=== PATIENT | male | born 1945 | race Caucasian/White ===

== ENCOUNTER 2021-09-21 13:18 | Inpatient (IN) | payer MEDICARE, OTHER ==
[~2021-09-21] VITALS: Ht 165.1 cm; Wt 59.0 kg
[2021-09-21 13:47] LABS: MEAN CORPUSCULAR VOLUME 88.8 fL (73.0-96.2); PLATELET COUNT (AUTO) 247 K/uL (152-348)
[2021-09-21 13:53] LABS: CARBON DIOXIDE 29 mmol/L (21-32); CHLORIDE 102 mmol/L (98-107); CREATININE 0.9 mg/dL (0.6-1.3); GLUCOSE 113 mg/dL (74-106); POTASSIUM 3.9 mmol/L (3.5-5.1); UREA NITROGEN, BLOOD 15 mg/dL (7-18)
[2021-09-21 13:58] LABS: ACETAMINOPHEN < 2.0 ug/mL (10-30); ALANINE AMINOTRANSFERASE 24 U/L (16-63); ALKALINE PHOSPHATASE 105 U/L (50-136); ASPARTATE AMINOTRANSFERASE 13 U/L (15-37); BILIRUBIN,DIRECT 0.1 mg/dL (0.0-0.2); BILIRUBIN,TOTAL 0.6 mg/dL (0.2-1.0); TOTAL PROTEIN, SERUM 8.9 g/dL (6.4-8.2)
[2021-09-21 14:00] LABS: *BILIRUBIN,URIN NEGATIVE (NEGATIVE); *BLOOD, URINE NEGATIVE (NEGATIVE); *CLARITY,URINE CLEAR (CLEAR); *COLOR,URINE YELLOW (YELLOW); *KETONES,URINE NEGATIVE (NEGATIVE); *UROBILINOGEN,URINE 0.2 E.U./dl (NORMAL); LEUKOCYTE ESTERASE ,URINE NEGATIVE (NEGATIVE); NITRITE, URINE NEGATIVE (NEGATIVE); PH,URINE 6.5 (5.0-8.0); UGLUCOSE NEGATIVE (NEGATIVE)
[2021-09-21 14:00] LABS: ETHANOL < 3 MG/DL (0-0)
--- NOTE | 2021-09-21 14:00 | NUR ---
pt had lunch with good apetite.
[2021-09-21 14:06] LABS: *AMPHETAMINE, URINE NEGATIVE (NEGATIVE); *CANNABINOID, URINE POSITIVE (NEGATIVE); *COCCAINE, URINE NEGATIVE (NEGATIVE); *OPIATE, URINE NEGATIVE (NEGATIVE); *PHENCYCLIDINE SCREEN,URINE NEGATIVE (NEGATIVE)
[2021-09-21] MEDS ORDERED: AMLO-212 PO (14:20)
[2021-09-21] MEDS ORDERED: OMEP20TA5 PO (14:20)
[2021-09-21] MEDS ORDERED: GABA-532 PO (14:20)
[2021-09-21] MEDS ORDERED: TAMS-3 PO (14:20)
[2021-09-21] MEDS ORDERED: ATOR40TA PO (14:20)
[2021-09-21] MEDS ORDERED: CHOL200026 PO (14:20)
[2021-09-21] MEDS ORDERED: MIRT45TA83 PO (14:20)
[2021-09-21] MEDS ORDERED: QUET200T PO (14:20)
[2021-09-21] MEDS ORDERED: QUET50TA PO (14:20)
--- NOTE | 2021-09-21 15:40 | NUR ---
PT TRANSFERED TO MHU IN STABLE UNIT.
[2021-09-21] MEDS ORDERED: MAGNESIUM HYDROXIDE 30 ML LIQUID UDC PO PRN (15:45)
[2021-09-21] MEDS ORDERED: CLONAZEPAM 0.5 MG TABLET PO PRN (15:45)
[2021-09-21] MEDS ORDERED: MAG HYDROX/AL HYDROX/SIMETH 30 ML LIQUID UDC PO PRN (15:45)
[2021-09-21 16:36] VITALS: BP 135/89
--- NOTE | 2021-09-21 18:51 | NUR ---
GPS: Nursing Notes: Admitting Notes: Patient is admitted to MHU on 5150 DTS due to stating that for the past 2-3 days has been having thoughts to kill himself, stated that he would have done it if police did not come, stated "I have strong medications.. I have a knife..", on face to face assessment, patient is A/Ox4, cooperative with staff, stated "I was frustrated because my insurance had changed.. I cannot changed it back..", "My mind was racing... I want it to hurt myself..", depressed mood and anxious affect, verbally cecily for safety, stated "I am feeling better now..But I am very frustrated..", oriented to the unit and Patient's Right handbook given to the patient, Bernabe Quiñones NP covering for Dr. Stevenson and Dr. Martins notified of admission by charge nurse.
[2021-09-21 19:56] VITALS: BP 138/82
[2021-09-21] MEDS: TEMAZEPAM 7.5 MG CAPSULE PO PRN (21:53)
--- NOTE | 2021-09-22 05:47 | NUR ---
Patient asleep but arousable, no complain of pain, calm cooperative at this time. Patient took sleeping pill for insomnia with help, Patient was offered shower last night and this morning but refused. cont to encourage.
[2021-09-22 07:53] VITALS: BP 141/95
[2021-09-22 08:37] LABS: BILIRUBIN,TOTAL 0.5 mg/dL (0.2-1.0); CREATININE 0.9 mg/dL (0.6-1.3); POTASSIUM 4.2 mmol/L (3.5-5.1); TOTAL PROTEIN, SERUM 7.9 g/dL (6.4-8.2)
--- NOTE | 2021-09-22 15:10 | NUR ---
Received patient awake in the hallway. A/O X 3 -4 to person, place, situation. Pt. is isolative, withdrawn, introspective, calm, cooperative with care, and compliant with medications. Pt. ambulates independently, steady gait. Denies SI/HI AH/VH, SOB, pain or any discomfort. Pt. is continent of bladder and bowel. Pt. is encourage to vent feelings and emotions. Fall and safety precautions implemented.
[2021-09-22 15:52] VITALS: BP 158/81
[2021-09-22] MEDS ORDERED: TAMSULOSIN HCL 0.4 MG CAP.SR.24H PO SCH (17:00)
[2021-09-22 17:30] VITALS: BP 145/90
[2021-09-22 20:00] VITALS: BP 143/80
[2021-09-22] MEDS ORDERED: AMLODIPINE 5 MG TABLET PO ONE (20:15)
[2021-09-22] MEDS: MIRTAZAPINE 15 MG TABLET PO SCH (20:23)
[2021-09-22] MEDS: QUETIAPINE FUMARATE 200 MG TABLET PO SCH (20:24)
[2021-09-22] MEDS: ATORVASTATIN 40 MG TABLET PO SCH (20:24)
--- NOTE | 2021-09-23 05:53 | NUR ---
GPS: Patient remain isolative and depressed. no complain of pain, calm cooperative at this time. slept 7 hrs through the night. Patient refused shower this morning. continue plan of care..
[2021-09-23] MEDS: PANTOPRAZOLE SODIUM 40 MG TABLET.DR PO SCH (06:16)
[2021-09-23 07:49] VITALS: BP 129/85
[2021-09-23] MEDS: AMLODIPINE 5 MG TABLET PO SCH (08:53)
[2021-09-23] MEDS: TAMSULOSIN HCL 0.4 MG CAP.SR.24H PO SCH ×2 (08:53→20:21)
[2021-09-23] MEDS: QUETIAPINE FUMARATE 25 MG TABLET PO SCH (08:56)
[2021-09-23] MEDS: CHOLECALCIFEROL 1,000 UNIT TABLET PO SCH (08:58)
[2021-09-23] MEDS ORDERED: Medication Not On Formulary EA (Omeprazole 1 TAB) PO SCH (09:00)
[2021-09-23] MEDS ORDERED: Medication Not On Formulary EA (Cholecalciferol (Vitamin D3) (Vitamin D3) 1 TAB) PO SCH (09:00)
--- NOTE | 2021-09-23 15:41 | NUR ---
Gps/Fuel Yard Operator- Staying in his room most of the morning , tends to be isolative .Interacts when engaged. Compliant with his routine meds. Decrease pain right eye discomfort.
--- NOTE | 2021-09-23 16:06 | NUR ---
JASEN Initial Discharge Note: Pt currently resides alone at [address] [place] [address] [address] [id number]. Pt stated he is agreeable to discharge to a half-way facility as he stated he needs help. Pt stated he has a niece he talks to from time to time however, pt does not have contact information. Pt stated he does not have any other family or friends. JASEN will continue to work with pt and MD to ensure a safe and proper discharge plan for the pt.
[2021-09-23 16:29] VITALS: BP 145/82
[2021-09-23 20:00] VITALS: BP 141/78
[2021-09-23] MEDS: QUETIAPINE FUMARATE 200 MG TABLET PO SCH (20:20)
[2021-09-23] MEDS: MIRTAZAPINE 15 MG TABLET PO SCH (20:20)
[2021-09-23] MEDS: ATORVASTATIN 40 MG TABLET PO SCH (20:35)
[2021-09-24] MEDS: PANTOPRAZOLE SODIUM 40 MG TABLET.DR PO SCH (06:19)
[2021-09-24 07:40] VITALS: BP_SYST 118; BP_SYST 132; BP_DIAS 73; BP_DIAS 78
[2021-09-24] MEDS: CHOLECALCIFEROL 1,000 UNIT TABLET PO SCH (08:55)
[2021-09-24] MEDS: TAMSULOSIN HCL 0.4 MG CAP.SR.24H PO SCH ×2 (08:55→20:27)
[2021-09-24] MEDS: AMLODIPINE 5 MG TABLET PO SCH (08:56)
[2021-09-24] MEDS: QUETIAPINE FUMARATE 25 MG TABLET PO SCH (08:56)
[2021-09-24] MEDS: ENSURE ENLIVE (VAN) 240 ML LIQUID PO SCH (11:00)
--- NOTE | 2021-09-24 13:00 | NUR ---
Gps/Regional Business Development Manager- Requesting to get his cell phone in the safe, claimed needed to talk to his Landlord, re- rent is due. , patient was able to leave message to his Landlord .
[2021-09-24] MEDS: CLONAZEPAM 1 MG TABLET PO PRN (18:21)
[2021-09-24] MEDS: MIRTAZAPINE 15 MG TABLET PO SCH (20:26)
[2021-09-24] MEDS: QUETIAPINE FUMARATE 200 MG TABLET PO SCH (20:26)
[2021-09-24] MEDS: ATORVASTATIN 40 MG TABLET PO SCH (20:27)
[2021-09-24 20:44] VITALS: BP 126/81
--- NOTE | 2021-09-25 04:48 | NUR ---
GPS NOTES: received patient in the room sleeping, responsive to verbal stimuli. Patient isolative and is with anxiety noted that is manageable by medications order. Compliant with medications. Patient able to communicate needs. Denies Si, and cecily safety with the underwriter mortgage loan. No distress noted. patient intermittently sleeping during shift.
[2021-09-25] MEDS: PANTOPRAZOLE SODIUM 40 MG TABLET.DR PO SCH (06:16)
[2021-09-25 08:10] VITALS: BP 156/98
[2021-09-25] MEDS: CHOLECALCIFEROL 1,000 UNIT TABLET PO SCH (08:17)
[2021-09-25] MEDS: QUETIAPINE FUMARATE 25 MG TABLET PO SCH (08:17)
[2021-09-25] MEDS: TAMSULOSIN HCL 0.4 MG CAP.SR.24H PO SCH ×2 (08:17→20:15)
[2021-09-25] MEDS: AMLODIPINE 5 MG TABLET PO SCH (08:17)
[2021-09-25] MEDS: ENSURE ENLIVE (VAN) 240 ML LIQUID PO SCH (08:21)
[2021-09-25 15:20] VITALS: BP 124/74
--- NOTE | 2021-09-25 18:06 | NUR ---
Gps/Manager Of Administration- Easily gets anxious, verbalizing frustration when unable to set needs , patient needed redirections , cueing , patient requesting some help to help him with his plans, worried about his insurance , needed help in calling them , for enrolling, noted > anxious when cant go through what he needs . Patient appeared to need some support , to help him do thing needed to be done.
[2021-09-25] MEDS: QUETIAPINE FUMARATE 200 MG TABLET PO SCH (20:15)
[2021-09-25] MEDS: ATORVASTATIN 40 MG TABLET PO SCH (20:15)
[2021-09-25] MEDS: MIRTAZAPINE 15 MG TABLET PO SCH (20:15)
[2021-09-25 21:05] VITALS: BP 120/72
--- NOTE | 2021-09-26 03:17 | NUR ---
Received patient in his room. The patient was anxious and ruminating over and over about concerns he has regarding his health insurance. When this sports book writer asked him why he was here, he stated " I made a stupid mistake and changed my insurance. So I was going to kill myself because of it ". The patients story was long and did not make any sense. This sports book writer tried to reassure and refocus the patient , but the patient was fixated on the subject. The patient did however, make a verbal contract for safety and did deny active SI. During the night, this patient has come out of his room to the desk verbalizing being worried about this and that. Safety Stratiges are in place at this time.Frequent rounding being done.
[2021-09-26] MEDS: PANTOPRAZOLE SODIUM 40 MG TABLET.DR PO SCH (06:08)
[2021-09-26] MEDS: CLONAZEPAM 1 MG TABLET PO PRN (06:14)
[2021-09-26 07:46] VITALS: BP 143/88
[2021-09-26] MEDS: QUETIAPINE FUMARATE 25 MG TABLET PO SCH (08:07)
[2021-09-26] MEDS: CHOLECALCIFEROL 1,000 UNIT TABLET PO SCH (08:07)
[2021-09-26] MEDS: ENSURE ENLIVE (VAN) 240 ML LIQUID PO SCH (08:07)
[2021-09-26] MEDS: AMLODIPINE 5 MG TABLET PO SCH (08:07)
[2021-09-26] MEDS: TAMSULOSIN HCL 0.4 MG CAP.SR.24H PO SCH ×2 (08:07→20:14)
--- NOTE | 2021-09-26 08:45 | NUR ---
Gps/Home Lending Officer- Stayed in the dinning room during his breakfast, Compliant with routine medications, less anxious , but still talks about the need to call his insurance tomorrow, and fixed things .
[2021-09-26 16:45] VITALS: BP 122/71
[2021-09-26] MEDS: ACETAMINOPHEN 325 MG TABLET PO PRN (18:57)
[2021-09-26 19:40] VITALS: BP 147/77
[2021-09-26] MEDS: QUETIAPINE FUMARATE 200 MG TABLET PO SCH (20:13)
[2021-09-26] MEDS: ATORVASTATIN 40 MG TABLET PO SCH (20:13)
[2021-09-26] MEDS: MIRTAZAPINE 15 MG TABLET PO SCH (20:13)
--- NOTE | 2021-09-27 02:57 | NUR ---
Patient seems less anxious tonight. Spent a good portion of time in the day room watching TV. Medication compliant. Denies active SI and made a verbal contract for safety with this investigative writer. Continuing with frequent rounds and encouraging patient to verbalize feelings and concerns.
[2021-09-27] MEDS: PANTOPRAZOLE SODIUM 40 MG TABLET.DR PO SCH (06:03)
[2021-09-27 07:41] VITALS: BP 147/50
[2021-09-27] MEDS: TAMSULOSIN HCL 0.4 MG CAP.SR.24H PO SCH ×2 (08:18→20:55)
[2021-09-27] MEDS: CHOLECALCIFEROL 1,000 UNIT TABLET PO SCH (08:18)
[2021-09-27] MEDS: AMLODIPINE 5 MG TABLET PO SCH (08:18)
[2021-09-27] MEDS: QUETIAPINE FUMARATE 25 MG TABLET PO SCH (08:18)
[2021-09-27] MEDS: ENSURE ENLIVE (VAN) 240 ML LIQUID PO SCH (08:19)
[2021-09-27] MEDS ORDERED: QUETIAPINE FUMARATE 25 MG TABLET PO SCH (09:00)
--- NOTE | 2021-09-27 14:30 | NUR ---
PT [facility] 14 DAY HOLD HEARING DONE TODAY AND WITH APPROVE PROBABLE CAUSE OF GRAVE DISABILITY ONLY. PT DID NOT PARTICIPATE WITH THE HEARING.
--- NOTE | 2021-09-27 14:32 | NUR ---
PT [facility] 14 DAY HOLD HEARING DONE TODAY AND WITH APPROVE PROBABLE CAUSE OF GRAVE DISABILITY ONLY. PT WAS PARTICIPATE WITH THE HEARING.
--- NOTE | 2021-09-27 15:51 | NUR ---
GPS: Nursing Notes: Destructive Behavior To Self: Patient is awake and responding to his name, depressed mood and anxious affect, A/Ox3, cooperative with nursing care, compliant with his medications, participating in therapeutic groups, gets easily anxious when redirected, argumentative at times, verbally cecily for safety, denies SI, believes that the medications are working for him, unable to formulate a viable plan for self care, isolative and withdrawn in his room at times, continue to monitor for safety, continue with treatment plan.
[2021-09-27 16:03] VITALS: BP 136/56
[2021-09-27 20:14] VITALS: BP 159/84
[2021-09-27] MEDS: QUETIAPINE FUMARATE 200 MG TABLET PO SCH (20:55)
[2021-09-27] MEDS: MIRTAZAPINE 15 MG TABLET PO SCH (20:55)
[2021-09-27] MEDS: ATORVASTATIN 40 MG TABLET PO SCH (20:55)
--- NOTE | 2021-09-27 22:34 | NUR ---
Received patient in the day room. He is noted A/O x 3. he continue fixed on his insurance, he stated, "I am worry that my insurance changed and I will not be able to see my doctors anymore. I used to have PPO and now I have HMO". patient was also noted tangental, he stated, "I won a saez on the "Saez is right". He stated that he is still sad but he denied SI/HI/AH/VH and he was able to verbally CFS. Patient was reassured about his insurance. he is reassured for his safety. safety and fall precautions are in place: bed at lowest position with wheels locked, room free form clutter and well-light. V/S stable. patient was given PO fluids and snacks. will continue to monitor.
[2021-09-27] MEDS: CLONAZEPAM 1 MG TABLET PO PRN (23:28)
--- NOTE | 2021-09-27 23:30 | NUR ---
Patient approached the nursing station, he stated, "I feel that my body is sleepy but my head is still awake". he was noted anxious, restless, and hyperverbal. patient was reassured and redirected. Klonopin 1mg PO PRN was given. will continue to monitor closely.
--- NOTE | 2021-09-28 06:04 | NUR ---
Patient slept for approx. 5.30 hrs through the night. He was compliant with medication regiment. will continue to monitor.
[2021-09-28] MEDS: PANTOPRAZOLE SODIUM 40 MG TABLET.DR PO SCH (06:41)
[2021-09-28 07:30] VITALS: BP 153/84
[2021-09-28] MEDS: TAMSULOSIN HCL 0.4 MG CAP.SR.24H PO SCH ×2 (08:39→20:33)
[2021-09-28] MEDS: CHOLECALCIFEROL 1,000 UNIT TABLET PO SCH (08:39)
[2021-09-28] MEDS: AMLODIPINE 5 MG TABLET PO SCH (08:39)
[2021-09-28] MEDS: ENSURE ENLIVE (VAN) 240 ML LIQUID PO SCH (08:40)
[2021-09-28] MEDS: QUETIAPINE FUMARATE 25 MG TABLET PO SCH (08:40)
--- NOTE | 2021-09-28 14:48 | NUR ---
GPS: Nursing Notes: Mood Disturbance: Depression: Patient is awake and responding to his name, participating in therapeutic groups, isolative and withdrawn in his room at times, needs prompting with his ADL's, depressed mood and anxious affect, feeling frustrated regarding changed in his insurance due to him calling medicare and changed it to medicare advantage, stated "I cannot change it back.. I do not have the same doctors..", "I do not know what to do..", argumentative at times, unable to formulate a viable plan for self care, denies SI/HI, verbally cecily for safety, continue to monitor for safety, gets easily anxious when redirected, continue with treatment plan.
[2021-09-28 15:01] VITALS: BP 136/82
[2021-09-28] MEDS: QUETIAPINE FUMARATE 200 MG TABLET PO SCH (20:32)
[2021-09-28] MEDS: TEMAZEPAM 7.5 MG CAPSULE PO PRN (20:33)
[2021-09-28] MEDS: MIRTAZAPINE 15 MG TABLET PO SCH (20:33)
[2021-09-28] MEDS: ATORVASTATIN 40 MG TABLET PO SCH (20:33)
[2021-09-28 21:03] VITALS: BP 142/78
[2021-09-29] MEDS: PANTOPRAZOLE SODIUM 40 MG TABLET.DR PO SCH (06:38)
[2021-09-29 07:30] VITALS: BP 144/85
[2021-09-29] MEDS: CHOLECALCIFEROL 1,000 UNIT TABLET PO SCH (08:56)
[2021-09-29] MEDS: QUETIAPINE FUMARATE 25 MG TABLET PO SCH (08:56)
[2021-09-29] MEDS: AMLODIPINE 5 MG TABLET PO SCH (08:57)
[2021-09-29] MEDS: TAMSULOSIN HCL 0.4 MG CAP.SR.24H PO SCH ×2 (08:58→20:27)
[2021-09-29] MEDS: ENSURE ENLIVE (VAN) 240 ML LIQUID PO SCH (08:58)
[2021-09-29 15:06] VITALS: BP 133/72
--- NOTE | 2021-09-29 17:36 | NUR ---
Received patient awake in his room. A/O X 3 -4 to person, place, situation. Pt. is isolative, withdrawn, cooperative with care, and compliant with medications. Pt. ambulates independently. Denies SI/HI AH/VH, SOB, pain or any discomfort. Pt. is continent of bladder and bowel. Pt. is encourage to verbalize concerns. Fall and safety precautions implemented.
[2021-09-29] MEDS: ATORVASTATIN 40 MG TABLET PO SCH (20:27)
[2021-09-29] MEDS: QUETIAPINE FUMARATE 200 MG TABLET PO SCH (20:27)
[2021-09-29] MEDS: MIRTAZAPINE 15 MG TABLET PO SCH (20:27)
[2021-09-29 21:00] VITALS: BP 142/81
[2021-09-29] MEDS: TEMAZEPAM 7.5 MG CAPSULE PO PRN (21:42)
--- NOTE | 2021-09-30 05:49 | NUR ---
Patient slept 6.45 hours during the night.
--- NOTE | 2021-09-30 05:50 | NUR ---
Patient was anxious last night about having a roommate. Eventually went to bed and slept 6.45 hours. Safety Stratiges are in place. Patient denies SI and the patient made a verbal contract for safety with this database report writer.
[2021-09-30] MEDS: PANTOPRAZOLE SODIUM 40 MG TABLET.DR PO SCH (06:19)
[2021-09-30 07:46] VITALS: BP 161/83
[2021-09-30] MEDS: AMLODIPINE 5 MG TABLET PO SCH (08:40)
[2021-09-30] MEDS: QUETIAPINE FUMARATE 25 MG TABLET PO SCH (08:40)
[2021-09-30] MEDS: TAMSULOSIN HCL 0.4 MG CAP.SR.24H PO SCH ×2 (08:40→20:55)
[2021-09-30] MEDS: ENSURE ENLIVE (VAN) 240 ML LIQUID PO SCH (08:41)
[2021-09-30] MEDS: CHOLECALCIFEROL 1,000 UNIT TABLET PO SCH (08:41)
--- NOTE | 2021-09-30 10:46 | NUR ---
Gps/Web Site Manager- Stayed in the activity room, able to participate in his group activity.Compliant with routine am meds., less anxious, verbalized needs and feelings
[2021-09-30 15:59] VITALS: BP 126/72
[2021-09-30 20:00] VITALS: BP 144/79
[2021-09-30] MEDS: QUETIAPINE FUMARATE 200 MG TABLET PO SCH (20:55)
[2021-09-30] MEDS: ATORVASTATIN 40 MG TABLET PO SCH (20:55)
[2021-09-30] MEDS: MIRTAZAPINE 15 MG TABLET PO SCH (20:56)
[2021-10-01] MEDS: PANTOPRAZOLE SODIUM 40 MG TABLET.DR PO SCH (06:12)
[2021-10-01 07:47] VITALS: BP 165/58
[2021-10-01] MEDS: CHOLECALCIFEROL 1,000 UNIT TABLET PO SCH (08:22)
[2021-10-01] MEDS: QUETIAPINE FUMARATE 25 MG TABLET PO SCH (08:22)
[2021-10-01] MEDS: ENSURE ENLIVE (VAN) 240 ML LIQUID PO SCH (08:23)
[2021-10-01] MEDS: AMLODIPINE 5 MG TABLET PO SCH (08:23)
[2021-10-01] MEDS: TAMSULOSIN HCL 0.4 MG CAP.SR.24H PO SCH ×2 (08:23→20:30)
[2021-10-01 15:29] VITALS: BP 141/77
[2021-10-01 19:30] VITALS: BP 161/95
[2021-10-01] MEDS: ATORVASTATIN 40 MG TABLET PO SCH (20:30)
[2021-10-01] MEDS: MIRTAZAPINE 15 MG TABLET PO SCH (20:30)
[2021-10-01] MEDS: QUETIAPINE FUMARATE 200 MG TABLET PO SCH (20:31)
[2021-10-01] MEDS: TEMAZEPAM 7.5 MG CAPSULE PO PRN (21:33)
--- NOTE | 2021-10-02 03:35 | NUR ---
GPS NOTES: patient in the day room watching tv, greeted patient and is pleasant with the health technical writer. Patient verbalized being upset with his room mate earlier d/t opposing decision of having their room door close/ open. Patient verbalized he had been keeping his frustration with his room mate for 5 days and is the only time he had said something to his room mate. Patient is apologetic with his behavior. Evaluation Manager actively listening to patient. Informed patient that room door needs to be open at all times for their safety, verbalized understanding. Patient cooperative with care. compliant with medication. Restoril given as per patient request. patient slept well. safety strategies in place.
[2021-10-02] MEDS: PANTOPRAZOLE SODIUM 40 MG TABLET.DR PO SCH (06:15)
[2021-10-02 07:31] VITALS: BP 140/84
[2021-10-02] MEDS: CHOLECALCIFEROL 1,000 UNIT TABLET PO SCH (08:12)
[2021-10-02] MEDS: TAMSULOSIN HCL 0.4 MG CAP.SR.24H PO SCH ×2 (08:12→20:30)
[2021-10-02] MEDS: AMLODIPINE 5 MG TABLET PO SCH (08:13)
[2021-10-02] MEDS: QUETIAPINE FUMARATE 25 MG TABLET PO SCH (08:13)
[2021-10-02] MEDS: ENSURE ENLIVE (VAN) 240 ML LIQUID PO SCH (08:14)
[2021-10-02] MEDS: ACETAMINOPHEN 325 MG TABLET PO PRN (13:48)
[2021-10-02 16:40] VITALS: BP 136/81
[2021-10-02 19:37] VITALS: BP 149/87
[2021-10-02] MEDS: MIRTAZAPINE 15 MG TABLET PO SCH (20:30)
[2021-10-02] MEDS: QUETIAPINE FUMARATE 200 MG TABLET PO SCH (20:30)
[2021-10-02] MEDS: ATORVASTATIN 40 MG TABLET PO SCH (20:30)
[2021-10-02] MEDS: TEMAZEPAM 7.5 MG CAPSULE PO PRN (21:41)
--- NOTE | 2021-10-03 05:13 | NUR ---
No changes in the patients behavior. He continues to be angry with his roommate. Medicated for sleep per request. Total sleep hours are 6.45 so far. The patient denies active SI , and safety stratiges remain in place.
[2021-10-03] MEDS: PANTOPRAZOLE SODIUM 40 MG TABLET.DR PO SCH (06:04)
[2021-10-03 07:38] VITALS: BP 145/95
[2021-10-03] MEDS: ACETAMINOPHEN 325 MG TABLET PO PRN (08:09)
[2021-10-03] MEDS: TAMSULOSIN HCL 0.4 MG CAP.SR.24H PO SCH ×2 (08:09→20:10)
[2021-10-03] MEDS: QUETIAPINE FUMARATE 25 MG TABLET PO SCH (08:10)
[2021-10-03] MEDS: CHOLECALCIFEROL 1,000 UNIT TABLET PO SCH (08:10)
[2021-10-03] MEDS: AMLODIPINE 5 MG TABLET PO SCH (08:12)
[2021-10-03] MEDS: ENSURE ENLIVE (VAN) 240 ML LIQUID PO SCH (08:12)
--- NOTE | 2021-10-03 15:09 | NUR ---
This patient has been on and off anxious today. Very calm at times but then fixates on his financial situation, shaving his face, his medical insurance, how much he dislikes his roommate etc. Nothing that is said to help or comfort him ,will he choose to listen too. He is a negative thinker. This underwriter mortgage loan will continue to offer assistance whenever possible and appropriate. Safety Stratiges are in place and ongoing.
[2021-10-03 16:24] VITALS: BP 145/85
[2021-10-03 19:58] VITALS: BP 142/87
[2021-10-03] MEDS: QUETIAPINE FUMARATE 200 MG TABLET PO SCH (20:10)
[2021-10-03] MEDS: ATORVASTATIN 40 MG TABLET PO SCH (20:10)
[2021-10-03] MEDS: MIRTAZAPINE 15 MG TABLET PO SCH (20:11)
[2021-10-03] MEDS: TEMAZEPAM 7.5 MG CAPSULE PO PRN (21:31)
[2021-10-04] MEDS: PANTOPRAZOLE SODIUM 40 MG TABLET.DR PO SCH (06:00)
--- NOTE | 2021-10-04 06:12 | NUR ---
Patient slept 7 hrs.Compliant with medications .PT continue to claim he doesn't get along with his roommate and couldn't to sleep during the night d/t his roommate keeps getting up.PRn Restoril was given per patient request.
[2021-10-04 07:39] VITALS: BP 131/82
[2021-10-04] MEDS: CHOLECALCIFEROL 1,000 UNIT TABLET PO SCH (08:30)
[2021-10-04] MEDS: QUETIAPINE FUMARATE 25 MG TABLET PO SCH (08:30)
[2021-10-04] MEDS: AMLODIPINE 5 MG TABLET PO SCH (08:30)
[2021-10-04] MEDS: TAMSULOSIN HCL 0.4 MG CAP.SR.24H PO SCH ×2 (08:31→20:20)
[2021-10-04] MEDS: ENSURE ENLIVE (VAN) 240 ML LIQUID PO SCH (08:32)
[2021-10-04 16:03] VITALS: BP 132/80
--- NOTE | 2021-10-04 17:19 | NUR ---
GPS: Nursing Notes: Mood Disturbance: Depression: Patient is awake and responding to his name, poor impulse control at times, stating that he is frustrated with his insurance, "I cannot see my own doctor for twenty years..", believes that he is not going to get his food if he is going to a jail, redirected during shift, unable to formulate a viable plan for self care, denies SI/HI, verbally cecily for safety, continue to monitor for safety, continue with treatment plan.
[2021-10-04 19:59] VITALS: BP 147/87
[2021-10-04] MEDS: MIRTAZAPINE 15 MG TABLET PO SCH (20:20)
[2021-10-04] MEDS: ATORVASTATIN 40 MG TABLET PO SCH (20:20)
[2021-10-04] MEDS: QUETIAPINE FUMARATE 200 MG TABLET PO SCH (20:20)
--- NOTE | 2021-10-05 04:58 | NUR ---
GPS NOTES: Patient watching tv upon start of the shift. pleasant upon approach, no active behavioral problem noted. interacts appropriately with peers and staff. Denies SI, denies feeling anxiety. Compliant with medication. slept well w/ no interruption. No distress. Closely monitoring observed. safety measure in place at all times.
[2021-10-05] MEDS: PANTOPRAZOLE SODIUM 40 MG TABLET.DR PO SCH (06:05)
[2021-10-05 07:30] VITALS: BP 156/83
[2021-10-05] MEDS: TAMSULOSIN HCL 0.4 MG CAP.SR.24H PO SCH ×2 (09:00→20:33)
[2021-10-05] MEDS: CHOLECALCIFEROL 1,000 UNIT TABLET PO SCH (09:00)
[2021-10-05] MEDS: QUETIAPINE FUMARATE 25 MG TABLET PO SCH (09:00)
[2021-10-05] MEDS: ENSURE ENLIVE (VAN) 240 ML LIQUID PO SCH (09:01)
[2021-10-05] MEDS: AMLODIPINE 5 MG TABLET PO SCH (09:01)
--- NOTE | 2021-10-05 13:18 | NUR ---
GPS: Nursing Notes: Mood Disturbance: Depression: Patient is awake and responding to his name, cooperative with nursing care, gets easily anxious when redirected, denies SI/HI, believes that he is getting better, participating in therapeutic groups, depressed mood and anxious affect, argumentative at times, unable to formulate a viable plan for self care, compliant with his medications, denies SI/HI, continue to monitor for safety, verbally cecily for safety, continue with treatment plan.
[2021-10-05 15:24] VITALS: BP 153/80
[2021-10-05 20:01] VITALS: BP 144/86
[2021-10-05] MEDS: MIRTAZAPINE 15 MG TABLET PO SCH (20:35)
[2021-10-05] MEDS: ATORVASTATIN 40 MG TABLET PO SCH (20:35)
[2021-10-05] MEDS: QUETIAPINE FUMARATE 200 MG TABLET PO SCH (20:35)
[2021-10-06] MEDS: PANTOPRAZOLE SODIUM 40 MG TABLET.DR PO SCH (07:16)
[2021-10-06 07:30] VITALS: BP 164/86
[2021-10-06] MEDS: TAMSULOSIN HCL 0.4 MG CAP.SR.24H PO SCH ×2 (08:28→20:16)
[2021-10-06] MEDS: CHOLECALCIFEROL 1,000 UNIT TABLET PO SCH (08:28)
[2021-10-06] MEDS: QUETIAPINE FUMARATE 25 MG TABLET PO SCH (08:28)
[2021-10-06] MEDS: AMLODIPINE 5 MG TABLET PO SCH (08:29)
[2021-10-06] MEDS: ENSURE ENLIVE (VAN) 240 ML LIQUID PO SCH (08:31)
[2021-10-06 10:00] VITALS: BP_SYST 145
[2021-10-06] MEDS ORDERED: QUETIAPINE FUMARATE 25 MG TABLET PO ONE (10:15)
--- NOTE | 2021-10-06 15:09 | NUR ---
Received patient sleeping in his room. A/O X 3 to person, place, environment. Pt. is irritable and anxious at times, gets frustrated easily. Pt. states: "That's why I didn't want to live anymore. Everything is so difficult to solve". Denies SI. Active listening provided. Fall and safety precautions implemented.
[2021-10-06 16:00] VITALS: BP 141/85
[2021-10-06 19:50] VITALS: BP 134/79
[2021-10-06] MEDS: MIRTAZAPINE 15 MG TABLET PO SCH (20:16)
[2021-10-06] MEDS: ATORVASTATIN 40 MG TABLET PO SCH (20:16)
[2021-10-06] MEDS: QUETIAPINE FUMARATE 200 MG TABLET PO SCH (20:16)
--- NOTE | 2021-10-06 21:08 | NUR ---
Received patient sleeping in his room. A/O X 3. Patient. is irritable and anxious at times, gets frustrated easily.Patient denies SI patient is encouraged to express his feelings and concerns. Patient encouraged to join group activities and interact with his peers..Fall and safety precautions implemented. Patient complaint with medication. Safety measures rendered. Bed in lowest position, bed locked, and bed alarm on while in bed.
[2021-10-06] MEDS: TEMAZEPAM 7.5 MG CAPSULE PO PRN (22:03)
[2021-10-07] MEDS: PANTOPRAZOLE SODIUM 40 MG TABLET.DR PO SCH (06:04)
[2021-10-07 07:30] VITALS: BP 157/88
[2021-10-07] MEDS ORDERED: QUETIAPINE FUMARATE 25 MG TABLET PO SCH (09:00)
[2021-10-07] MEDS: TAMSULOSIN HCL 0.4 MG CAP.SR.24H PO SCH ×2 (09:04→20:26)
[2021-10-07] MEDS: ENSURE ENLIVE (VAN) 240 ML LIQUID PO SCH (09:04)
[2021-10-07] MEDS: AMLODIPINE 5 MG TABLET PO SCH (09:05)
[2021-10-07] MEDS: CHOLECALCIFEROL 1,000 UNIT TABLET PO SCH (09:05)
[2021-10-07] MEDS: QUETIAPINE FUMARATE 100 MG TABLET PO SCH (09:06)
--- NOTE | 2021-10-07 15:38 | NUR ---
Gps/Ambulatory Care Coordinator- Attends and participated in his group therapy , compliant with his routine am meds., had been cooperative with staff providing his care. Continued compliance with his routine medications. Bilateral hearing aid placed in his locker, kept in a green cup ,patient well informed, agreed to it.Less anxious, redirectable. Making needs known to the staff.
[2021-10-07 16:00] VITALS: BP 138/79
[2021-10-07] MEDS: ATORVASTATIN 40 MG TABLET PO SCH (20:25)
[2021-10-07] MEDS: MIRTAZAPINE 15 MG TABLET PO SCH (20:25)
[2021-10-07] MEDS: QUETIAPINE FUMARATE 200 MG TABLET PO SCH (20:26)
[2021-10-07 20:38] VITALS: BP 142/88
[2021-10-07] MEDS: TEMAZEPAM 7.5 MG CAPSULE PO PRN (21:58)
--- NOTE | 2021-10-08 05:08 | NUR ---
No changes with this patient. Covid Swab sent to lab in preparation to be discharged today. Shower provided. Total sleep hours are 6.30 so far. Safety stratiges in place. The patient denies SI but does get anxious easily. Continuing to monitor.
[2021-10-08] MEDS: PANTOPRAZOLE SODIUM 40 MG TABLET.DR PO SCH (06:02)
[2021-10-08 07:30] VITALS: BP 132/84
[2021-10-08] MEDS: ENSURE ENLIVE (VAN) 240 ML LIQUID PO SCH (08:49)
[2021-10-08] MEDS: TAMSULOSIN HCL 0.4 MG CAP.SR.24H PO SCH (08:49)
[2021-10-08] MEDS: QUETIAPINE FUMARATE 100 MG TABLET PO SCH (08:49)
[2021-10-08] MEDS: CHOLECALCIFEROL 1,000 UNIT TABLET PO SCH (08:49)
[2021-10-08 08:50] VITALS: BP 133/83
[2021-10-08] MEDS: AMLODIPINE 5 MG TABLET PO SCH (08:50)
--- NOTE | 2021-10-08 14:24 | NUR ---
Gps/Broadband Technician- Called [facility]. 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
--- NOTE | 2021-10-08 16:12 | NUR ---
Gps/Plumber'S Assistant- Discharged to [facility]SNF) via [facility] , patient in good spirit, no new c/o offered, all belongings and valuable given back to patient.
[2021-10-08] MEDS ORDERED: ATORVASTATIN 10 MG TABLET PO SCH (21:00)
== END 2021-10-08 16:15 | DRG 880 ==
LOC: ER 13:18 → GPS 15:26
PROVIDERS: ADMIT Nurse Practitioner Psychiatric/Mental Health; ATTEND Registered Nurse
DX: F41.1 Generalized anxiety disorder (principal); R45.851 Suicidal ideations; F03.91 Unspecified dementia, unspecified severity, with behavioral disturbance; F29 Unspecified psychosis not due to a substance or known physiological condition; F32.9 Major depressive disorder, single episode, unspecified; E78.5 Hyperlipidemia, unspecified; F12.10 Cannabis abuse, uncomplicated; G47.00 Insomnia, unspecified; K21.9 Gastro-esophageal reflux disease without esophagitis; N40.0 Benign prostatic hyperplasia without lower urinary tract symptoms; I10 Essential (primary) hypertension; Z79.899 Other long term (current) drug therapy; F25.9 Schizoaffective disorder, unspecified; Z20.822 Contact with and (suspected) exposure to COVID-19
CPT/HCPCS: 36415; 85025; 97161; A4663; G0480